=== PATIENT | male | born 1995 | race Caucasian/White ===

== ENCOUNTER 2016-06-25 22:35 | Emergency (ER) | payer MEDICAID ==
[~2016-06-25] VITALS: Ht 170.2 cm; Wt 90.7 kg
[2016-06-25 22:41] VITALS: BP 124/79
[2016-06-25] MEDS ORDERED: NACL 0.9% 1,000 ML IV ONE (23:34)
[2016-06-25] MEDS ORDERED: ONDANSETRON 4 MG/2 ML VIAL IVP ONE (23:35)
[2016-06-25] MEDS ORDERED: DICYCLOMINE HCL LIQUID 20 MG, ALUMINUM HYD/MAG/SIMETHICONE 30 ML, LIDOCAINE VISCOUS 2% ... PO ONE ×3 (23:35)
[2016-06-26 00:06] LABS: ANION GAP 7.3 (8-16); CALCIUM 8.8 mg/dL (8.5-10.1); CARBON DIOXIDE 32.7 mmol/L (21-32); CREATININE 1.1 mg/dL (0.6-1.3)
[2016-06-26 00:12] LABS: ALBUMIN 3.5 g/dL (3.4-5.0); TOTAL BILIRUBIN 0.4 mg/dL (0.0-1.0); TOTAL PROTEIN, SERUM 8.2 g/dL (6.4-8.2)
[2016-06-26 00:51] VITALS: BP 122/82
== END 2016-06-26 00:50 | disposition home or self-care (01) ==
LOC: MED 22:35
DX: E11.65 Type 2 diabetes mellitus with hyperglycemia (principal); R10.13 Epigastric pain; R10.10 Upper abdominal pain, unspecified; R11.2 Nausea with vomiting, unspecified
CPT/HCPCS: 36415; 80053; 83690; 96361; 96374; 99284; J2405; J7030

== ENCOUNTER 2016-07-04 23:18 | Emergency (ER) | payer MEDICAID ==
[~2016-07-04] VITALS: Ht 170.2 cm; Wt 90.7 kg
[2016-07-04 23:26] VITALS: BP 92/40
--- NOTE | 2016-07-04 23:54 | NUR ---
PT TAKEN TO BED 4
--- NOTE | 2016-07-04 23:57 | NUR ---
PT C/O REDNESS AND SWOLLEN HAND AND FOREARM, AFTER SLEEPING AT HOME, WITH PUS 2 DAYS AGO, GETTING WORSE TODAY, SEVERE PAIN 10/10, COULD NOT FEEL HANDS. TAKEN PENICILLIN AT HOME. PT DENIES N/V/D; AAOX4 WITH EVEN AND STEADY GAIT; LUNGS CLEAR BL; HR EVEN AND REGULAR; PT DENIES ANY FEVER, CP, SOB, OR COUGH AT THIS TIME; PATIENT STATES PAIN OF 10/10 AT THIS TIME; VSS; PATIENT POSITIONED FOR COMFORT; HOB ELEVATED; BEDRAILS UP X2; BED DOWN. ER MD MADE AWARE OF PT STATUS.
--- NOTE | 2016-07-05 00:09 | NUR ---
Dr. Olsen evaluating patient at bedside.
[2016-07-05] MEDS ORDERED: fentaNYL 0.05 MG/ML VIAL IM ONE (00:15)
[2016-07-05] MEDS ORDERED: LIDOCAINE 1% 500 MG/50 ML VIAL INJ ONE (00:15)
--- NOTE | 2016-07-05 00:32 | NUR ---
DR CHUN DOING PROCDURE ON LEFT ARM CELLULITIS AT THIS TIME. PT TOLERATING WELL.
[2016-07-05] MEDS ORDERED: CLINDAMYCIN 600 MG/4 ML VIAL IM ONE (00:45)
[2016-07-05 01:10] VITALS: BP 141/85
--- NOTE | 2016-07-05 01:10 | NUR ---
Patient discharged with v/s stable. Written and verbal after care instructions given and explained. Patient alert, oriented and verbalized understanding of instructions. Ambulatory with steady gait. All questions addressed prior to discharge. ID band removed. Patient advised to follow up with PMD. Rx of BACTRIM DS 800/160MG, TYLENOL NO.3, MOTRIN 800 MG given. Patient educated on indication of medication including possible reaction and side effects. Opportunity to ask questions provided and answered. RT. ARM APPLIED SHORT SPLINT AND ARM SLING. CAP REFILL < 3 SEC, PT. ABLE TO MOVE ALL FINGERS.
== END 2016-07-05 01:10 | disposition home or self-care (01) ==
LOC: MED 23:18
DX: L03.113 Cellulitis of right upper limb (principal); L02.413 Cutaneous abscess of right upper limb; E11.9 Type 2 diabetes mellitus without complications
CPT/HCPCS: 10060; 82948; 90471; 90715; 96372; 99284; J2001; J3010; J3490; 12001

== ENCOUNTER 2016-07-06 18:47 | Emergency (ER) | payer MEDICAID ==
[~2016-07-06] VITALS: Ht 170.2 cm; Wt 90.7 kg
[2016-07-06 19:12] VITALS: BP 123/76
--- NOTE | 2016-07-06 20:06 | NUR ---
PATIENT AMBULATED TO ER BED 3.
--- NOTE | 2016-07-06 20:10 | NUR ---
Patient being evaluated by physician at bedside.
[2016-07-06] MEDS ORDERED: VANCOMYCIN 1,000 MG in DEXTROSE 5% 250 ML IV ONE (20:15)
[2016-07-06] MEDS ORDERED: VANCOMYCIN 1,000 MG VIAL ONE (20:35)
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
[2016-07-06] MEDS ORDERED: fentaNYL 0.05 MG/ML VIAL IVP ONE (21:05)
[2016-07-06 22:25] VITALS: BP 120/68
--- NOTE | 2016-07-06 22:25 | NUR ---
Patient discharged with v/s stable. Written and verbal after care instructions given and explained. Patient verbalized understanding. Ambulatory with steady gait. All questions addressed prior to discharge. Advised to follow up with PMD.
== END 2016-07-06 22:25 | disposition home or self-care (01) ==
LOC: MED 18:47
DX: L02.511 Cutaneous abscess of right hand (principal); L02.413 Cutaneous abscess of right upper limb; L03.113 Cellulitis of right upper limb; E11.9 Type 2 diabetes mellitus without complications
CPT/HCPCS: 10060; 29125; 96365; 96375; 99284; J3010; J3370; J7060

== ENCOUNTER 2016-08-18 15:57 | Emergency (ER) | payer MEDICAID ==
[~2016-08-18] VITALS: Ht 170.2 cm; Wt 90.7 kg
[2016-08-18 16:33] VITALS: BP 146/63
--- NOTE | 2016-08-18 17:37 | NUR ---
Patient ambulated to bed 4 with family. RN evaluating patient at bedside.
[2016-08-18] MEDS ORDERED: NACL 0.9% 1,000 ML IV SCH ×2 (17:39→19:19)
--- NOTE | 2016-08-18 17:40 | NUR ---
21M BIB C/O ABSCESS TO LEFT FOREARM X 2 DAYS; REDNESS/SWELLING/DRAINAGE NOTED TO SITE AT THIS TIME; LEFT RADIAL PULSE PALPABLE, LEFT CAP REFILL < 2 SECONDS, NO LOSS OF SENSATION TO LEFT ARM AT THIS TIME; PT STATES " I THINK A SPIDER BIT ME"; PT NOTED W/ MILD REDNESS/SWELLING TO RT HAND AND SMALL CIRCULAR REDNESS/SWELLING TO RT FOREARM AT THIS TIME; PT STATES NO PAIN OR SWELLING ON RIGHT ARM AT THIS TIME; RT RADIAL PULSE PALPABLE, RT CAP REFILL < 2 SECONDS, NO LOSS OF SENSATION TO RT ARM AT THIS TIME. PT ADMITS TO IV HEROIN USE X3 YEARS. HX DM. PT AA&OX4, PERRLA, BL LUNG SOUNDS CLEAR, RR EVEN/UNLABORED, PT STATES NO N/V/D AT THIS TIME; SKIN IS WARM/DRY AT THIS TIME; PT RESTING IN BED W/ HOB ELEVATED AND IN LOWEST POSITION; POSITIONED FOR COMFORT; ER MD MADE AWARE OF STATUS. WILL CONTINUE TO MONITOR.
[2016-08-18] MEDS ORDERED: MORPHINE SULFATE 10 MG/ML SYR ONE (18:07)
[2016-08-18] MEDS ORDERED: MORPHINE SULFATE 5 MG/ML VIAL IM ONE ×2 (18:10)
[2016-08-18] MEDS ORDERED: cefTRIAXone 2,000 MG in DEXTROSE 5% 100 ML IV ONE (18:15)
[2016-08-18] MEDS ORDERED: INSULIN HUMAN REGULAR 100 UNITS/ML 10 ML VIAL IVP ONE ×2 (18:15)
[2016-08-18 18:23] LABS: BASOPHILS # (AUTO) 0.2 K/uL (0.00-0.22); BASOPHILS % (AUTO) 1.3 % (0.0-2.0); EOSINOPHILS # (AUTO) 0.1 K/uL (0-0.4); HEMOGLOBIN 12.8 g/dL (12.0-18.0)
[2016-08-18 18:25] LABS: APPEARANCE,URINE CLEAR (CLEAR); BILIRUBIN,URINE NEGATIVE (NEGATIVE); BLOOD, URINE NEGATIVE (NEGATIVE); COLOR,URINE YELLOW (YELLOW); LEUKOCYTE ESTERASE ,URINE NEGATIVE (NEGATIVE); NITRITE, URINE NEGATIVE (NEGATIVE); PH,URINE 5.5 (5.0-9.0); PROTEIN,URINE NEGATIVE (NEGATIVE); UGLUCOSE 3+ (NEGATIVE); UROBILINOGEN,URINE 0.2 EU/dL (0.2 - 1)
[2016-08-18 18:27] LABS: HEMATOCRIT 37.6 % (36-52); LYMPHOCYTES # (AUTO) 2.1 K/uL (2.0-11.5); LYMPHOCYTES % (AUTO) 15.1 % (20.5-51.1); MEAN CORPUSCULAR HEMOGLOBIN 29 pg (27-31); MEAN CORPUSCULAR HGB CONC 34 g/dL (33-37); MEAN CORPUSCULAR VOLUME 86 fL (80-94); MONOCYTES # (AUTO) 0.9 K/uL (0.8-1.0); MONOCYTES % (AUTO) 6.5 % (1.7-9.3); NEUTROPHILS # (AUTO) 10.8 K/uL (1.8-7.7); NEUTROPHILS % (AUTO) 76.1 % (42.2-75.2); PLATELET COUNT (AUTO) 356 K/uL (140-450); RED BLOOD CELL COUNT(AUTO) 4.39 MIL/uL (4.20-6.10); RED CELL DISTRIBUTION WIDTH 11.4 % (11.6-13.7); WHITE BLOOD COUNT (AUTO) 14.1 K/uL (4.8-10.8)
[2016-08-18 18:32] LABS: ANION GAP 15.7 (8-16); CALCIUM 8.2 mg/dL (8.5-10.1); CARBON DIOXIDE 25.6 mmol/L (21-32); CREATININE 0.9 mg/dL (0.7-1.3); POTASSIUM 4.3 mmol/L (3.5-5.1)
[2016-08-18 18:32] LABS: AMPHETAMINE, URINE NEG. ng/ml (NEG <=1000); BARBITURATE, URINE NEG. ng/ml (NEG <=200); BENZODIAZEPINE, URINE NEG. ng/mL (NEG <=200); CANNABINOID, URINE POS. ng/mL (NEG <=50); COCAINE, URINE NEG. ng/mL (NEG <=300); OPIATE, URINE NEG. ng/mL (NEG <=2000); PHENCYCLIDINE SCREEN,URINE NEG. ng/mL (NEG <=25)
[2016-08-18 18:35] LABS: BACTERIA,URINE None Seen /HPF (None Seen); RBC,URINE 0-3 /HPF (0-5); SQUAMOUS EPITHELIAL CELL,UR None Seen /LPF (0-3 (FEW)); WBC,URINE 0-3 /HPF (0-5)
--- NOTE | 2016-08-18 18:35 | NUR ---
PT STATES PAIN 8/10 AT THIS TIME; ER MD DR. HUGO NOTIFIED; POSITIONED FOR COMFORT.
[2016-08-18 18:39] LABS: INR 1.1 (0.8-1.2); PARTIAL THROMBOPLASTIN TIME 29.9 secs (22-35.6); PROTHROMBIN TIME 10.8 secs (10.8-13.4)
[2016-08-18] MEDS ORDERED: cefTRIAXone 2,000 MG VIAL ONE (18:44)
[2016-08-18] MEDS ORDERED: cefTRIAXone 1,000 MG VIAL ONE (18:44)
[2016-08-18 18:49] LABS: ALBUMIN 2.8 g/dL (3.4-5.0); BILIRUBIN,DIRECT 0.1 mg/dL (0.0-0.3); TOTAL BILIRUBIN 0.4 mg/dL (0.0-1.0); TOTAL PROTEIN, SERUM 8.2 g/dL (6.4-8.2)
[2016-08-18 18:54] LABS: LACTIC ACID 3.9 mmol/L (0.4-2.0)
--- NOTE | 2016-08-18 19:00 | NUR ---
REPORT RECEIVED FROM VINNY TANNER
--- NOTE | 2016-08-18 19:07 | NUR ---
Pt report given to VINNY RADER. Transfer of care at this time.
[2016-08-18] MEDS ORDERED: ACETAMINOPHEN 325 MG TAB PO PRN (19:20)
[2016-08-18] MEDS ORDERED: MORPHINE SULFATE 2 MG/ML SYR IVP PRN (19:20)
[2016-08-18] MEDS ORDERED: DOCUSATE SODIUM 100 MG GELCAP PO PRN (19:20)
[2016-08-18] MEDS ORDERED: ONDANSETRON 4 MG/2 ML VIAL IVP PRN (19:20)
[2016-08-18] MEDS ORDERED: HYDROcodone/APAP 10/325 MG 1 TAB TAB PO PRN (19:20)
[2016-08-18] MEDS ORDERED: HYDROmorphone 1 MG/ML AMP IVP PRN (19:20)
[2016-08-18 19:41] VITALS: BP 151/82
--- NOTE | 2016-08-18 19:42 | NUR ---
PT SIGNED AMA PAPERS AND DISCHARGE INSTRUCTIONS GIVEN. PT INFORMED AND SIGNED AMA AND STATED HE WILL RETURN TO THE ER IN THE AM TO HAVE PACKING REMOVED. Patient discharged with v/s stable. Written and verbal after care instructions given and explained. Patient alert, oriented and verbalized understanding of instructions. Ambulatory with steady gait. All questions addressed prior to discharge. ID band removed. Patient advised to follow up with PMD. Rx of KEFLEX given. Patient educated on indication of medication including possible reaction and side effects. Opportunity to ask questions provided and answered.
[2016-08-19] MEDS ORDERED: FAMOTIDINE 20 MG TAB PO SCH (09:00)
== END 2016-08-18 19:42 | disposition home or self-care (01) ==
LOC: MED 15:57
DX: L02.414 Cutaneous abscess of left upper limb (principal); E11.9 Type 2 diabetes mellitus without complications; F11.20 Opioid dependence, uncomplicated
CPT/HCPCS: 10061; 36415; 80053; 80305; 81001; 82150; 82248; 82948; 83605; 83690; 85025; 85610; 85730; 87040; 99284; G0482; J0696; J1815; J2270; J7030